=== PATIENT | female | born 2000 | race African-American/Black ===

== ENCOUNTER 2019-12-09 09:37 | Emergency (ER) | payer MEDICAID ==
[~2019-12-09] VITALS: Ht 154.9 cm; Wt 49.8 kg
[2019-12-09 09:41] VITALS: BP 128/86
[2019-12-09] MEDS ORDERED: ACETAMINOPHEN 325MG TABLET PO ONE (10:30)
[2019-12-09] MEDS ORDERED: PREDNISONE 20MG TABLET PO ONE (10:30)
== END 2019-12-09 10:39 | disposition home or self-care (01) ==
LOC: ER 09:37
DX: R22.9 Localized swelling, mass and lump, unspecified (principal)
CPT/HCPCS: 99283; J7512

== ENCOUNTER 2021-03-28 17:34 | Observation (INO) | payer MEDICAID ==
[~2021-03-28] VITALS: Ht 157.5 cm; Wt 73.5 kg
[2021-03-28 18:15] LABS: CLARITY URINE CLEAR (CLEAR); COLOR URINE YELLOW (YELLOW); KETONES URINE NEGATIVE (NEGATIVE); LEUKOCYTE ESTERASE URINE 1+ (NEGATIVE); NITRITE URINE NEGATIVE (NEGATIVE); OCCULT BLOOD URINE NEGATIVE (NEGATIVE); PROTEIN URINE TRACE (NEGATIVE); SPECIFIC GRAVITY URINE 1.015 (1.005-1.030); UROBILINOGEN URINE 0.2 E.U./dL (0.2-1.0)
[2021-03-28 18:18] LABS: BASOPHILS % 0.2 % (0.0-2.0); EOSINOPHILS % 0.4 % (0.0-5.0); HEMATOCRIT. 34.9 % (36.0-48.0); HEMOGLOBIN. 11.6 g/dL (12.0-16.0); LYMPHOCYTES % 13.6 % (20.0-50.0); MEAN CORPUSCULAR HEMOGLOBIN 27.3 pg (28.0-32.0); MEAN CORPUSCULAR VOLUME 81.9 fL (81.0-99.0); MEAN PLATELET VOLUME 10.4 fl (7.4-10.4); MONOCYTES % 7.8 % (2.0-8.0); PLATELET 198 x1000/uL (130-400); RED BLOOD CELL COUNT 4.26 mill/uL (4.2-5.4); RED CELL DISTRIBUTION WIDTH 15.1 % (11.6-14.6)
[2021-03-28 18:28] LABS: INR 0.9; PARTIAL THROMBOPLASTIN TIME 27.3 sec (23.4-31.0)
[2021-03-28 18:33] LABS: *AMPHETAMINES SCREEN URINE NEGATIVE (NEGATIVE); CANNABINOID URINE SCREEN NEGATIVE (NEGATIVE); OPIATES URINE SCREEN NEGATIVE (NEGATIVE); PHENCYCLIDINE URINE SCREEN NEGATIVE (NEGATIVE)
[2021-03-28 18:34] LABS: *BARBITURATES SCREEN URINE NEGATIVE (NEGATIVE); *BENZODIAZEPINES SCREEN URINE NEGATIVE (NEGATIVE); *COCAINE SCREEN URINE NEGATIVE (NEGATIVE); METHADONE URINE SCREEN NEGATIVE (NEGATIVE)
[2021-03-28 18:58] LABS: HEPATITIS B SURFACE ANTIGEN NEGATIVE
[2021-03-28] MEDS ORDERED: LACTATED RINGERS 1,000 ML IV SCH (19:00)
[2021-03-28] MEDS ORDERED: PRENATAL VITAMIN (20:27)
== END 2021-03-28 20:45 | disposition home or self-care (01) ==
LOC: 8 EST LDRP 17:34
PROVIDERS: ADMIT Obstetrics & Gynecology; ATTEND Obstetrics & Gynecology
DX: O42.92 Full-term premature rupture of membranes, unspecified as to length of time between rupture and onset of labor (principal); Z20.822 Contact with and (suspected) exposure to COVID-19; Z3A.37 37 weeks gestation of pregnancy
CPT/HCPCS: 36415; 59025; 76805; 76818; 80305; 81003; 85025; 85610; 85730; 86592; 86703; 86762; 86850; 86900; 86901; 87340; 87426; 96360; 96361; G0378; 99281

== ENCOUNTER 2021-04-03 12:51 | Observation (INO) | payer MEDICAID, OTHER ==
[~2021-04-03 12:51] MED LIST: PRENATAL VITAMIN
== END 2021-04-03 14:30 | disposition home or self-care (01) ==
LOC: 8 EST LDRP 12:51
PROVIDERS: ADMIT Obstetrics & Gynecology; ATTEND Obstetrics & Gynecology
DX: O46.92 Antepartum hemorrhage, unspecified, second trimester (principal); O62.9 Abnormality of forces of labor, unspecified; Z3A.25 25 weeks gestation of pregnancy
CPT/HCPCS: 59025; G0378; 99281; G0379

== ENCOUNTER 2021-06-02 08:10 | Emergency (ER) | payer OTHER, MEDICAID ==
[~2021-06-02] VITALS: Ht 162.6 cm; Wt 50.0 kg
[2021-06-02] MEDS ORDERED: ACETAMINOPHEN 325MG TABLET PO STA (09:02)
[2021-06-02 09:39] LABS: BASOPHILS % 0.6 % (0.0-2.0); EOSINOPHILS % 0.3 % (0.0-5.0); HEMATOCRIT. 39.6 % (36.0-48.0); HEMOGLOBIN. 13.1 g/dL (12.0-16.0); LYMPHOCYTES % 20.6 % (20.0-50.0); MEAN CORPUSCULAR HEMOGLOBIN 27.8 pg (28.0-32.0); MEAN CORPUSCULAR VOLUME 84.1 fL (81.0-99.0); MEAN PLATELET VOLUME 8.8 fl (7.4-10.4); MONOCYTES % 7.5 % (2.0-8.0); PLATELET 235 x1000/uL (130-400); RED BLOOD CELL COUNT 4.71 mill/uL (4.2-5.4); RED CELL DISTRIBUTION WIDTH 15.4 % (11.6-14.6)
[2021-06-02 09:45] LABS: CHLORIDE 110 mEq/L (98-107)
[2021-06-02 09:55] LABS: HCG SCREEN NEGATIVE
[2021-06-02 10:42] LABS: CLARITY URINE CLOUDY (CLEAR); COLOR URINE YELLOW (YELLOW); KETONES URINE 4+ (NEGATIVE); LEUKOCYTE ESTERASE URINE 1+ (NEGATIVE); NITRITE URINE NEGATIVE (NEGATIVE); OCCULT BLOOD URINE NEGATIVE (NEGATIVE); PH URINE 5.5 (4.5-8.0); PROTEIN URINE 1+ (NEGATIVE); SPECIFIC GRAVITY URINE 1.027 (1.005-1.030)
[2021-06-02] MEDS ORDERED: IOHEXOL-300 100 ML BOTTLE ONE (11:31)
[2021-06-02] MEDS ORDERED: IBUP-2028 MT (11:45)
[2021-06-02] MEDS ORDERED: TOPUD PO (11:45)
[2021-06-02 12:00] VITALS: BP 136/83
== END 2021-06-02 12:16 | disposition home or self-care (01) ==
LOC: ER 08:11
DX: S00.81XA Abrasion of other part of head, initial encounter (principal); Y08.89XA Assault by other specified means, initial encounter; Y93.89 Activity, other specified; Y92.89 Other specified places as the place of occurrence of the external cause; Y99.8 Other external cause status
CPT/HCPCS: 36415; 70450; 71260; 73610; 73630; 74177; 80053; 81003; 81025; 84703; 85025; 86850; 86900; 86901; 99285; Q9967

== ENCOUNTER 2021-08-05 08:41 | Emergency (ER) | payer MEDICAID, OTHER ==
[~2021-08-05] VITALS: Ht 157.5 cm; Wt 50.0 kg
[~2021-08-05 08:41] MED LIST changes: +IBUP-2028 MT; +TOPUD PO
[2021-08-05] MEDS ORDERED: HYDROCODONE/ACETAMINOPHEN 10/325MG TABLET PO ONE (09:15)
[2021-08-05] MEDS: KETOROLAC 60MG/2ML VIAL IM NR ×2 (12:31→14:16)
[2021-08-05] MEDS ORDERED: MORPHINE SULFATE 10 MG/ML CPJ IM ONE (14:15)
[2021-08-05 14:16] VITALS: BP 138/72
[2021-08-05] MEDS ORDERED: IBUP-2030 MT (14:26)
[2021-08-05] MEDS ORDERED: HYDR-4009 MT (14:26)
== END 2021-08-05 15:36 | disposition home or self-care (01) ==
LOC: ER 08:41
DX: S82.141A Displaced bicondylar fracture of right tibia, initial encounter for closed fracture (principal); F17.210 Nicotine dependence, cigarettes, uncomplicated; V43.62XA Car passenger injured in collision with other type car in traffic accident, initial encounter; Y93.89 Activity, other specified; Y92.488 Other paved roadways as the place of occurrence of the external cause
CPT/HCPCS: 29505; 73552; 73562; 73590; 73700; 81025; 96372; 99284; J1885; J2270

== ENCOUNTER 2023-09-10 07:45 | Emergency (ER) | payer MEDICAID, OTHER ==
[~2023-09-10] VITALS: Ht 154.9 cm; Wt 65.0 kg
[~2023-09-10 07:45] MED LIST changes: +IBUP-2030 MT
[2023-09-10 07:57] VITALS: BP 123/96; PULSE 85; RESP 18; TEMP 98.3; O2SAT 100
[2023-09-10] MEDS ORDERED: NAPR500T7 MT (09:39)
== END 2023-09-10 10:24 | disposition home or self-care (01) ==
LOC: ER 07:45
DX: M25.561 Pain in right knee (principal); M79.644 Pain in right finger(s); V99.XXXA Unspecified transport accident, initial encounter; Y93.89 Activity, other specified; Y92.89 Other specified places as the place of occurrence of the external cause; Y99.8 Other external cause status
CPT/HCPCS: 73130; 73560; 81025; 99284

== ENCOUNTER 2024-10-19 20:09 | Emergency (ER) | payer OTHER ==
[~2024-10-19] VITALS: Ht 149.9 cm; Wt 56.8 kg
[~2024-10-19 20:09] MED LIST changes: +NAPR-1486 MT
[2024-10-19 20:31] VITALS: O2SAT 99
[2024-10-19] MEDS: LIDOCAINE HCL/EPINEPHRINE 1%-EPI 1:100,000 20ML VIAL INFIL ONE (22:45)
[2024-10-19] MEDS ORDERED: DOXY100T2 MT (22:48)
[2024-10-19] MEDS ORDERED: IBUP-2029 MT (22:48)
[2024-10-19 22:54] VITALS: BP 135/90; PULSE 65; RESP 16; TEMP 36.7; O2SAT 100
[2024-10-19] MEDS: BACITRACIN ZINC OINT UDPKT TOP ONE (22:54)
== END 2024-10-19 23:00 | disposition home or self-care (01) ==
LOC: ER 20:09
DX: L02.511 Cutaneous abscess of right hand (principal); J45.909 Unspecified asthma, uncomplicated; Z79.899 Other long term (current) drug therapy; Z98.890 Other specified postprocedural states
CPT/HCPCS: 99283; J2004; Z7610 ×2